=== PATIENT | female | born 1960 | race Caucasian/White ===

== ENCOUNTER 2021-04-27 09:40 | Emergency (ER) | payer SELFPAY ==
[2021-04-27] MEDS ORDERED: Acetaminophen/Codeine 30-300mg Tablet ONE (10:37)
== END 2021-04-27 10:45 | disposition home or self-care (01) ==
LOC: NAV ERS 09:40
DX: S22.41XA Multiple fractures of ribs, right side, initial encounter for closed fracture (principal); Z79.899 Other long term (current) drug therapy; W19.XXXA Unspecified fall, initial encounter